=== PATIENT | male | born 1940 | race Caucasian/White ===

== ENCOUNTER 2020-03-08 11:49 | Emergency (ER) | payer MEDICARE, OTHER ==
[~2020-03-08] VITALS: Ht 182.9 cm; Wt 113.4 kg
[2020-03-08] MEDS ORDERED: SODIUM CHLORIDE 0.9% 1000ML 1,000 ML IV SCH (12:00)
--- NOTE | 2020-03-08 12:27 | Emergency Department Note ---
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 Any updates have been documented here. Past Medical History Recent Fever: No Clinical Suspicion of Infectio: No New/Unexplained Change in Ment: No Past Medical History: Hypertension, Diabetes Other Medical History: dementia alzheimers skin ca Other Surgery: skin ca removed to right ear Review of Systems Review of Systems Constitutional: Reports no symptoms EENTM: Reports no symptoms Cardiovascular: Reports no symptoms Respiratory: Reports no symptoms Gastrointestinal: Reports no symptoms Genitourinary: Reports no symptoms Musculoskeletal: Reports no symptoms Integumentary: Reports no symptoms Neurological: Reports no symptoms Psychological: Reports no symptoms Endocrine: Reports no symptoms Hematological/Lymphatic: Reports no symptoms Physical Exam Related Data Allergies: Coded Allergies: No Known Allergies (Unverified , 03/08/20) Triage Vital Signs Vital Signs Date Time Temp Pulse Resp B/P (MAP) Pulse Ox O2 Delivery O2 Flow Rate FiO2 03/08/20 12:18 98.8 104 18 149/99 97 Room Air Vital signs reviewed: Yes Physical Exam CONSTITUTIONAL Constitutional: Present well-developed, Present well-nourished HENT HENT: Present normocephalic, Present atraumatic, Present oropharynx clear/moist, Present nose normal HENT L/R: Present left ext ear normal, Present right ext ear normal EYES Eyes: Reports PERRL, Reports conjunctivae normal NECK Neck: Present ROM normal PULMONARY Pulmonary: Present effort normal, Present breath sounds normal CARDIOVASCULAR Cardiovascular: Present regular rhythm, Present heart sounds normal, Present capillary refill normal, Present normal rate GASTROINTESTINAL Abdominal: Present soft, Present nontender, Present bowel sounds normal GENITOURINARY Genitourinary: Present exam deferred SKIN Skin: Present warm, Present dry MUSCULOSKELETAL Musculoskeletal: Present ROM normal NEUROLOGICAL Neurological: Present alert, Present oriented x 3, Present no gross motor or sensory deficits PSYCHOLOGICAL Psychological: Present mood/affect normal, Present judgement normal Procedures 12 Lead ECG Interpretation ECG Interpretation : Material Handler 2Nd Shift: Interpreted by ED physician Date: Mar 08, 2020 Prior ECG tracings: reviewed Rhythm: sinus rhythm Rate: normal QRS axis: normal ST segment flattening: V5, V6 T waves normal: Yes Clinical Impression: abnormal ECG Assessment & Plan Medical Decision Making MDM 80-year-old male presents for episode of hypotension with the dermatology clinic. He had a procedure today and was noted to be in the 80s systolic. This has since resolved and he states he has no symptoms at this time. Per son he has had multiple falls for the last 6 days and son is concerned that they will not feel to take care of him at home. he has a history of vascular dementia. Initial workup included head CT and labs show possible PNA and will treat at such. Patient is refusing further medical care. He is alert and oriented and understands the risks of going home. I discussed management with his son who would like to pursue care at home. I offered admission which the son declines. We'll discharge home on Augmentin and Z-pack. Patient was reexamined and is stable for discharge. Reassessment Reassessment time: 15:55 Reassessment Angry, wishes to leave Assessment & Plan Final Impression: (1) PNA (pneumonia) Depart Disposition: HOME, SELF-CARE Last Vital Signs Date Time Temp Pulse Resp B/P (MAP) Pulse Ox O2 Delivery O2 Flow Rate FiO2 03/08/20 12:18 98.8 104 18 149/99 97 Room Air Home Meds Active Scripts Azithromycin (Z-MORENO) 250 Mg Tablet, 250 MG PO UD for 5 Days, #1 UDPKT Z-Pack Prov:MARGARET TIRADO MD 03/08/20 Amoxicillin/Potassium Clav (AUGMENTIN 875-125 TABLET) 1 Each Tablet, 1 TAB PO BID for 10 Days, #20 Prov:MARGARET TIRADO MD 03/08/20 Medications in the ED Sodium Chloride 1,000 ml @ 0 mls/hr Q0M IV ; Start 03/08/20 at 12:00; Stop 03/08/20 at 12:59 MARGARET TIRADO MD Mar 08, 2020 12:27
[2020-03-08 12:45] LABS: BASOPHILS # (AUTO) 0.1 (0.0-0.1); BASOPHILS % 0.5 % (0.0-1.0); EOSINOPHILS # (AUTO) 0.1 (0.0-0.4); EOSINOPHILS % 0.6 % (0.0-6.0); HEMATOCRIT 46.3 % (38.2-49.6); HEMOGLOBIN 15.4 g/dL (14.0-18.0); LYMPHOCYTES # (AUTO) 2.2 (1.0-3.2); LYMPHOCYTES % 19.5 % (18.0-39.1); MEAN CORPUSCULAR HEMOGLOBIN 28.6 pg (28-32); MEAN CORPUSCULAR HGB CONC 33.3 g/dL (31-35); MEAN CORPUSCULAR VOLUME 86.1 fL (81-99); MONOCYTES # (AUTO) 1.1 (0.2-0.8); MONOCYTES % 9.3 % (4.4-11.3); NEUTROPHILS # (AUTO) 7.9 (2.1-6.9); NEUTROPHILS % 69.7 % (38.7-80.0); PLATELET COUNT 140 x10e3/uL (140-360); RED BLOOD COUNT 5.38 x10e6/uL (4.3-5.7); RED CELL DISTRIBUTION WIDTH 14.6 % (11.7-14.4)
--- NOTE | 2020-03-08 12:59 | NUR ---
Patient refusing to keep heart monitor leads and blood pressure cuff on. Patient is very uncooperative and wants to leave. He states that he doesn't need to be here and he thinks his son is just trying to put him in a chcf.
[2020-03-08 13:08] LABS: ALBUMIN 3.7 g/dL (3.5-5.0); ALBUMIN/GLOBULIN RATIO 1.1 (0.8-2.0); ANION GAP 17.8 mmol/L (8-16); CALCIUM 9.4 mg/dL (8.4-10.2); CREATININE, SERUM 1.36 mg/dL (0.72-1.25); POTASSIUM 3.8 mmol/L (3.5-5.1)
--- NOTE | 2020-03-08 14:36 | Diagnostic Imaging Report ---
EXAMINATION: Head CT HISTORY: 80-year-old male status post fall, trauma, pain COMPARISON: None. TECHNIQUE: Helical axial images of the head were obtained. Dose modulation, iterative reconstruction, and/or weight based adjustment of the mA/kV was utilized to reduce the radiation dose to as low as reasonably achievable. Image quality: Motion/streaking artifact limits the evaluation of the skull base and posterior cranial fossa. FINDINGS: Parenchyma: 1. Scatter and moderate confluent periventricular and sanchez radiata white matter hypodensities, most slightly nonspecific chronic microvascular ischemic changes, more prominent in the left occipital region. 2. No mass or hemorrhage. No CT evidence of acute territorial vascular insult. Extra-axial spaces:No abnormal density. No extra-axial fluid collections Brain volume: Mild generalized brain volume loss. Ventricles: No hydrocephalus or displacement. Arteries: No density suggestive of thrombus. Dural sinuses: No abnormal density. Foramen magnum: No mass, Chiari malformation, or basilar invagination. Sella: No obvious mass. Paranasal/mastoid sinuses: Imaged portions unremarkable. Skull/Scalp: No lytic or blastic lesions. No fractures. Possible laceration of the right auricle versus is artifact. IMPRESSION: 1. No acute post traumatic intracranial hemorrhage. 2. Moderate chronic microvascular ischemic changes. 3. Mild generalized brain volume loss. Signed by: Dr. Vero Black M.D. on 03/08/2020 2:32 PM
[2020-03-08] MEDS ORDERED: FENTANYL CITRATE/PF 100MCG/2 ML INJ IV ONE (15:00)
--- NOTE | 2020-03-08 15:14 | Diagnostic Imaging Report ---
EXAMINATION: CHEST SINGLE (PORTABLE) INDICATION: Sepsis COMPARISON: None FINDINGS: LINES/TUBES:EKG leads overlie the chest. LUNGS:The lungs are well-inflated. Peripheral right and left lung hazy opacities. PLEURA:No pleural effusion or pneumothorax. MEDIASTINUM:The cardiomediastinal silhouette appears normal in size and shape. BONES/SOFT TISSUES:No acute osseous injury. ABDOMEN:No free air under the diaphragm. IMPRESSION: Right and left lung hazy opacities can be seen in the setting of multifocal pneumonia, including viral etiologies. Signed by: Dieudonne Cordero MD on 03/08/2020 3:11 PM
--- NOTE | 2020-03-08 15:14 | NUR ---
PT DOES NOT MEET CRITERIA FOR [facility] PLACEMENT, UNABLE TO GET A LARGE ENOUGH PICTURE TO BE ABLE TO MEET SAID CRITERIA FROM ED. FAMILY WILL HAVE TO RETURN TO PRIMARY CARE DOCTOR TO GET INFORMATION TOGETHER AND OR PLACEMENT INTO A GROUP OR ASSISTED LIVING.
[2020-03-08] MEDS ORDERED: AUGMENTIN 875-1 EACH PO (15:19)
[2020-03-08] MEDS ORDERED: AZITHROMYCIN250 MG PO (15:20)
== END 2020-03-08 15:55 | disposition home or self-care (01) ==
LOC: ER 11:51
DX: J18.9 Pneumonia, unspecified organism (principal); E11.65 Type 2 diabetes mellitus with hyperglycemia; F03.90 Unspecified dementia, unspecified severity, without behavioral disturbance, psychotic disturbance, mood disturbance, and anxiety; I10 Essential (primary) hypertension; Z85.828 Personal history of other malignant neoplasm of skin
CPT/HCPCS: 36415; 70450; 71045; 80053; 83605; 83880; 84484; 85025; 87040; 93005; 99284; J3010; J7030; U0002